=== PATIENT | female | born 1960 | race Caucasian/White ===

== ENCOUNTER → 2018-05-16 09:45 | Outpatient (CLI) | payer OTHER, SELFPAY ==
--- NOTE | 2018-05-16 | FLU_PTH ---
PATIENT: MELVIN CALLEJAS LOC: [facility] U#:[id number] AGE/SX: 64/F ROOM: RE05/16/[address]: Dr. Fernando Oleary MD : 1960 BED: DIS: SPEC #: [id number] RECD: 05/16/18 16:00 STATUS: ADRI DIANA #: [id number] SHABBIR: 05/16/18 00:[address]: Fernando Oleary DEPT: CYTOLOGY RECD BY: Homero Romo ENTERED: 05/17/18 09:57 SP TYPE: Fluid OTHR DR: Dr. Padilla Del Cid MD Tissues: Urine Procedures: Special Stain Group II Cytospin Fluid HEADER OPERATION: Not noted PRE-OP DIAGNOSIS: Hematuria TISSUE SUBMITTED: Urine for cytology DIAGNOSIS CYTOLOGY Urine for cytology (cytospin): Negative for malignant cells. AM:ignacio 05/18/18 CYTOLOGY STUDY Slides are reviewed. CYTOLOGY GROSS Received is 60 ml of clear pale yellow fluid labeled with the patient's name and and designated per the requisition as urine. Submitted for cytology. / CC:cc 05/17/18 TC:5 CPT: 23941
[2018-05-16 14:39] LABS: Cytology, Body Fluid / CSF SEE PATHOLOGY REPORT
== END ==
PROVIDERS: Family Provider Family Medicine; PCP Family Medicine; Referring Provider Urology; Visit Provider Urology
DX: R31.9 Hematuria, unspecified (principal)
CPT/HCPCS: 87086; 87088; 88108; 88305; 88313

== ENCOUNTER 2019-06-04 10:18 | Emergency (ER) | payer OTHER, SELFPAY ==
[2019-06-04 10:19] VITALS: BP 160/91; PULSE 104; RESP 16; TEMP 36.6; O2SAT 99; BMI 25.9
[2019-06-04] MEDS: Triamcinolone Acetonide 40 MG/ML Vial IM (11:12)
--- NOTE | 2019-06-04 11:14 | ED.VIS.GEN ---
History of Present Illness Chief Complaint: Allergic Reaction Informant: Patient Onset: Yesterday Maximum Severity: Mild Narrative: Patient complains of diffuse hives and itching reaction that occurred late Wednesday and definitely Wednesday morning when she woke she was covered with hives to the head arms trunk and lower extremities, she has had no exposures to anything that could have caused this no soaps or detergents etc. does report she started amoxicillin about 5 days ago related to a sinus condition, she has taken that in the past never been ill, she indicates she began taking Benadryl and the itching is better but has not resolved. She has no oral cavity lesions no fevers normal bowel bladder habits Past Medical History - Allergies and Home Meds Allergies/Adverse Reactions: Allergies levofloxacin [From Levaquin] Adverse Reaction (Verified 06/04/19 10:19) Other tachycardia prednisone Adverse Reaction (Verified 06/04/19 10:19) Other tachycardia Primary Care Physician: Padilla Del Cid MD [Primary Care Provider] - Past Medical History: - - Includes as above Smoking Status: Never smoker Review of Systems General: Denies: Chills, Fever, Sweats Eyes: Denies: Visual changes - bilaterally, Diplopia ENT: Denies: Rhinorrhea, Sore throat Cardiovascular: Denies: Chest pain, Palpitations Respiratory: Denies: Dyspnea, Cough, Dyspnea on exertion Gastrointestinal: Denies: Abdominal pain, Nausea, Vomiting, Diarrhea, Melena, Hematochezia Genitourinary: Denies: Dysuria, Hematuria, Frequency Musculoskeletal: Denies: Back pain, Extremity Pain Skin: Denies: Rash, Wounds Neurological: Denies: Headache, Weakness, Numbness Allergy: Reports: Uticaria Physical Exam Vital Signs/Narrative: Vital Signs Temp Pulse Resp BP Pulse Ox 06/04/19 10:19 97.8 F 104 H 16 160/91 H 99 General: Well nourished, Well developed, No Acute Distress Head: Normocephalic, Atraumatic Eyes: Perrl, EOMI ENT: Moist mucous membranes, No rhinorrhea, Nasal congestion - ,, - Neck: Supple, Nontender Cardiovascular: Regular rate, Regular rhythm, No murmurs Respiratory: No distress, CTA bilaterally, Chest nontender Abdomen: Soft, Nontender, Nondistended, Normal bowel sounds Back: Nontender, Normal Inspection Extremities: Nontender, No edema Skin: Normal color, Rash, - - Small circular blanching hives to the head to the neck to the torso extremities and to the back, there is no petechia purpura skin breakdown, there is no oral cavity lesions, she indicates that these lesions are less itchy than they were before she took the Benadryl Neurological: Alert, Oriented x3, Cranial nerves II-XII grossly intact, Normal Strength, Normal Sensation Psychological: Normal affect, Normal Mood Diagnostic/Tx/Re-eval - Medical Decision Making The only exposure difference is the amoxicillin we will have her stop that, she does have a head cold with some nasal congestion, I explained is could also be viral, she is able to take Kenalog she believes she has had that in the past, indicates prednisone just made her heart race did not cause an allergic reaction, she is eating and drinking well she will also start taking nonsedating antihistamine such as Claritin or Zyrtec, Aveeno bath and follow-up with her outpatient providers and return for change in symptoms Home stable Impression final allergic reaction with hives; possibly related to amoxicillin ED Disposition - Plan for ED Patient: Diagnosis: Allergic reaction Instructions: ALLERGIC REACTION, Drug, ALLERGIC REACTION, Other (General) Referrals: Padilla Del Cid MD [Primary Care Provider] - Additional Instructions: Take Claritin as an antihistamine, use of Aveeno bath follow-up with your doctor stop the amoxicillin
[2019-06-04 11:38] VITALS: BP 139/90; PULSE 82; RESP 16; O2SAT 99
--- NOTE | 2019-06-04 11:39 | ED.RN ---
REVIEWED D/C INSTRUCTIONS, FOLLOW UP CARE, AND S/S THAT WOULD WARRANT A RETURN TO THE ED WITH PT. PT VERBALIZED AN UNDERSTANDING AND DENIES FURTHER QUESTIONS FOR THIS RN. PT SKIN P/W/D, RESP EVEN AND UNLABORED, PT A&O X 3, NO DISTRESS NOTED. PT AMBULATED OUT OF ED, GAIT STEADY.
== END 2019-06-04 11:39 | disposition home or self-care (01) ==
LOC: ED 11:05
PROVIDERS: Emergency Provider Emergency Medicine; Family Provider Family Medicine; PCP Family Medicine
DX: L50.0 Allergic urticaria (principal); J00 Acute nasopharyngitis [common cold]
CPT/HCPCS: 96372; 99282

== ENCOUNTER → 2020-12-13 08:24 | Outpatient (CLI) | payer OTHER, SELFPAY ==
--- NOTE | 2020-12-13 08:26 | BI_ITS ---
MAMMOGRAPHY - BILATERAL SCREENING 3-D TOMOSYNTHESIS REASON FOR EXAM: Female, 60 years old. SCREENING PERTINENT HISTORY: No significant family history. TECHNIQUE: 2-D mammograms and 3-D Tomosynthesis of the breast (s) were performed. CAD was performed. COMPARISON: 12/26/2019. FINDINGS: The breast composition is of scattered fibroglandular tissue No dense spiculated masses or suspicious microcalcifications are identified. No architectural distortion is identified. There is no skin thickening or retraction. There has been no significant change since the prior study of 12/26/2019 BI/SCRN MAMM (CAD)W/YENIFER BILAT IMPRESSION: No mammographic signs of malignancy. Routine yearly mammograms recommended. ASSESSMENT CATEGORY: BIRADS Category 1: Negative. A letter regarding these results will be sent to the patient by the facility within 30 days. FOLLOW UP RECOMMENDATION: Yearly follow up mammogram recommended. (A) Approximately 10% of breast cancers are not detected by mammography. A normal mammogram should not delay biopsy of a clinically suspicious abnormality. Electronically Signed: Lisa Casillas, at 14:08 EDT Tel , Service support ,
== END ==
PROVIDERS: PCP Family Medicine; Referring Provider Family Medicine; Visit Provider Family Medicine
DX: Z12.31 Encounter for screening mammogram for malignant neoplasm of breast (principal)
CPT/HCPCS: 77063; 77067

== ENCOUNTER → 2021-03-20 | Outpatient (CLI) | payer OTHER, SELFPAY ==
--- NOTE | 2021-03-20 08:41 | CYSPIN_PTH ---
PATIENT: MELVIN CALLEJAS LOC: [facility] U#:[id number] AGE/SX: 60/F ROOM: RE03/20/[address]: Dr. Fernando Oleary MD : 1960 BED: DIS: 03/20/2021 SPEC #: [id number] RECD: 03/20/21 12:07 STATUS: ADRI REEvelin #: [id number] SHABBIR: 03/20/21 08:[address]: Fernando Oleary DEPT: CYTOLOGY RECD BY: Elsy Orellana ENTERED: 03/20/21 12:07 SP TYPE: CYSPIN FL OTHR DR: Dr. Padilla Del Cid MD Tissues: Urine Procedures: Pap Stain (control) Special Stain Group II Cytospin Fluid HEADER OPERATION: Not noted PRE-OP DIAGNOSIS: Asymptomatic microscopic hematuria TISSUE SUBMITTED: Urine for cytology DIAGNOSIS CYTOLOGY Urine for cytology (cytospin): Negative for malignant cells. SJ:ignacio 03/21/2021 CYTOLOGY STUDY Slides are reviewed. CYTOLOGY GROSS Received is 20 ml of dark yellow cloudy fluid labeled with the patient's name and and designated per the requisition as urine. Submitted for cytology preparation. / ignacio 03/20/2021 TC:4 CPT: 74707
[2021-03-20 11:51] LABS: Cytology, Body Fluid / CSF SEE PATHOLOGY REPORT
== END | disposition home or self-care (01) ==
LOC: LABSPEC 11:07
PROVIDERS: PCP Family Medicine; Referring Provider Urology; Visit Provider Urology
DX: R31.21 Asymptomatic microscopic hematuria (principal)
CPT/HCPCS: 88108; 88313

== ENCOUNTER 2021-10-08 13:51 | Outpatient (CLI) | payer OTHER, SELFPAY ==
--- NOTE | 2021-10-08 13:53 | BI_ITS ---
MAMMOGRAPHY - BILATERAL SCREENING 3-D TOMOSYNTHESIS REASON FOR EXAM: Female, 61 years old. breast cancer screening PERTINENT HISTORY: No significant family history. TECHNIQUE: 2-D mammograms and 3-D Tomosynthesis of the breast (s) were performed. CAD was performed. COMPARISON: 12/13/2020 FINDINGS: The breast composition is composed of scattered fibroglandular density. Scattered benign calcifications are seen. No dense spiculated masses or suspicious microcalcifications are identified. No architectural distortion is identified. There is no skin thickening or retraction. There has been no significant change since the prior study. BI/SCRN MAMM (CAD)W/YENIFER BILAT IMPRESSION: No mammographic signs of malignancy. Routine yearly mammograms recommended. ASSESSMENT CATEGORY: BIRADS Category 1: Negative. A letter regarding these results will be sent to the patient by the facility within 30 days. FOLLOW UP RECOMMENDATION: Yearly follow up mammogram recommended. (A) Approximately 10% of breast cancers are not detected by mammography. A normal mammogram should not delay biopsy of a clinically suspicious abnormality. Electronically Signed: Óscar Weber MD at 14:52 EDT ,
== END 2021-10-08 23:59 | disposition home or self-care (01) ==
LOC: OPBI 13:52
PROVIDERS: PCP Family Medicine; Visit Provider Nurse Practitioner Women's Health
DX: Z12.31 Encounter for screening mammogram for malignant neoplasm of breast (principal)
CPT/HCPCS: 77063; 77067

== ENCOUNTER → 2022-10-15 | Outpatient (CLI) | payer OTHER, SELFPAY ==
--- NOTE | 2022-10-15 07:57 | BI_ITS ---
MAMMOGRAPHY - BILATERAL SCREENING REASON FOR EXAM: Female, 62 years old. Routine annual screening examination. PERTINENT HISTORY: Grandmother with breast cancer. TECHNIQUE: Digital bilateral breast yenifer (3D mammographic acquisition) in the CC and MLO projections. 2-D mediolateral oblique (MLO) and craniocaudad (CC) views of both breasts were obtained. CAD: Full Field Digital Mammography with Computer Added Detection was performed. COMPARISON: Comparison is made with prior study October 08, 2021 and December 13, 2020. FINDINGS: Breast Composition: The breasts are heterogeneously dense, which may obscure small masses. There are no dominant masses or suspicious calcifications. No other significant abnormalities are identified. There has been no significant change since the prior study. BI/SCRN MAMM (CAD)W/YENIFER BILAT IMPRESSION: Stable bilateral screening mammogram. Yearly follow-up mammogram recommended. (A) ASSESSMENT CATEGORY: BIRADS Category 2: Benign. A letter regarding these results will be sent to the patient by the facility within 30 days. Approximately 10% of breast cancers are not detected by mammography. A normal mammogram should not delay biopsy of a clinically suspicious abnormality. [id number] Electronically Signed: Chuy Pepe MD at 9:04 EDT ,
== END | disposition home or self-care (01) ==
LOC: OPBI 07:55
PROVIDERS: PCP Family Medicine; Referring Provider Family Medicine; Visit Provider Family Medicine
DX: Z12.31 Encounter for screening mammogram for malignant neoplasm of breast (principal); Z80.3 Family history of malignant neoplasm of breast
CPT/HCPCS: 77063; 77067

== ENCOUNTER → 2023-08-21 | Outpatient (CLI) | payer OTHER, SELFPAY ==
--- OUTSIDE RECORDS SUMMARY | 2023-08-21 08:28 | XMS RPT_ITS | CCD ---
Author Name Unknown Address [address] [place] [address] Organization [facility] Care Team Providers Care Registry Np Name Role Phone Milind Del Cid Unavailable BLAIR Rodriguez Attending BLAIR Pierson Referring MILIND Kee Primary Care Unavailable Milind Del Cid Primary Care Provider Milind Del Cid Primary Care Provider Milind Del Cid Primary Care Provider Allergies Allergy Classification Reported Allergen(s) Allergy Type Date of Onset Reaction(s) Facility (1 source) levoFLOXacin Drug Allergy 7 Rash, [facility] (1 source) Penicillins Drug Allergy 0 [facility] (1 source) predniSONE Drug Allergy 2 Shortness of Breath [facility] Medications Completed/Discontinued Medications Medication Drug Class(es) Dates Sig (Normalized) Sig (Original) estradiol 1 mg oral tablet (1 source) Estrogen Start: 06-27-2016 estradiol (ESTRACE) 1 mg tablet FOLIC ACID/MULTIVITS-MIN/L UT (CENTRUM SILVER ORAL) (1 source) FOLIC ACID/MULTIVITS-MIN/ LUT (CENTRUM SILVER ORAL) Take by mouth. 0 Active Problems Problem Classification Problem Date Documented Da te Episodic/Chronic Blindness and vision defects (4 sources) Presbyopia; Translations: [Presbyopia] Onset: 05-08-2014 Episodic Cataract (2 sources) Nuclear senile cataract; Translations: [Age-related nuclear cataract, bilateral] Onset: 05-08-2014 Chronic Glaucoma (2 sources) Suspected bilateral glaucoma; Translations: [Preglaucoma, unspecified, bilateral] Onset: 08-18-2016 Chronic Other eye disorders (1 source) Vitreous opacities; Translations: [Other vitreous opacities, unspecified eye] Onset: 05-08-2014 05-08-2014 Chronic Retinal detachments; defects; vascular occlusion; and retinopathy (1 source) Retinal dystrophy; 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] Chronic Unclassified (1 source) Breast neoplasm screening status Episodic Unclassified (2 sources) Patient encounter status; Translations: [Visit for screening mammogram] Results Test Name Value Interpretation Reference Range Facil ity Encounters Encounter Date Encounter Type Care Provider Facility Start: 10-21-2021 End: 10-21-2021 Patient encounter procedure Reginald Erazobrittney OD Work Phone: Optometry Procedures Date Procedure Procedure Detail Performing Clinician Start: 12-26-2019 MG Breast - bilatera l screening Blair Lazo Work Phone: Start: 12-26-2019 Mammography Trisha Dobson harshadreneelaury Start: 12-20-2018 MG Breast - bilatera l screening Blair Lazo Work Phone: Start: 12-20-2018 Mammography Blair Maira llo Start: 12-09-2017 Mammography Blair Maira llo Start: 12-17-2016 Microscopic observat ion [Identifier] in Cervix by Cyto stain Blair Lazo Plan of Treatment Date Care Activity Detail Author Start: 04-08-2028 Tetanus vaccination Tetanus: Every 10yrs [facility] Start: 02-19-2022 [facility] Start: 12-27-2020 End: 12-27-2020 Appointment 12/27/2020 Appointment Radiology Milind Del Cid MD [facility] [address] [id number] [phone] [facility] Start: 12-25-2020 Mammography MAMMOGRAM [facility] Start: 12-25-2020 Screening mammography Mammogram [facility] Start: 02-20-2020 Influenza vaccination given Sequential Influenza Vaccine (#1) [facility] Start: 12-21-2019 Screening mammography Mammogram [facility] Start: 12-18-2019 Screening for malignant neoplasm of cervix PAP SMEAR [facility] Start: 02-19-2019 Influenza vaccination given SEQUENTIAL INFLUENZA VACCINE (#1) [facility] Start: 12-13-2018 End: 12-13-2018 Ambulatory 12/13/2018 Appointment Radiology Blair Lazo MD [address] [place] [address] [phone] [facility] Start: 12-09-2018 Screening mammography Mammogram [facility] Start: 02-19-2018 Influenza vaccination SEQUENTIAL INFLUENZA VACCINE (Season Ended) [facility] Start: 2009 Administration of herpes zoster vaccine Zoster Vaccines (1 of 2) [facility] Start: 2009 Screening for malignant neoplasm of colon [facility] Start: 2009 SHINGRIX VACCINE (1 of 2) SHINGRIX VACCINE (1 of 2) [facility] Start: 2004 COLOGUARD (FIT-DNA) COLOGUARD (FIT-DNA) [facility] Start: 2004 Colonoscopy COLONOSCOPY [facility] Start: 2004 COLORECTAL CANCER SCREENING COLORECTAL CANCER SCREENING [facility] Start: [address] COLONOGRAPHY [facility] Start: 2004 DIABETES SCREEN DIABETES SCREEN [facility] Start: 2004 FECAL OCCULT BLOOD FECAL OCCULT BLOOD [facility] Start: 2004 LIPID SCREEN LIPID SCREEN [facility] Start: 2004 SIGMOIDOSCOPY SIGMOIDOSCOPY [facility] Start: 1989 HPV TESTING HPV TESTING [facility] Start: 1980 PAP TESTING PAP TESTING [facility] Start: 1978 Urine microalbumin profile DTAP,TDAP,TD (1 - Tdap) [facility] Start: 1977 Hepatitis C antibody, confirmatory test Hepatitis C Screening [facility] Start: 1977 HEPATITIS C SCREENING HEPATITIS C SCREENING [facility] Start: 1977 HIV SCREENING HIV SCREENING [facility] Start: 1975 COVID-19 Vaccine (1 of 2) COVID-19 Vaccine (1 of 2) [facility] Start: 1974 HIV screening HIV Screening [facility] Start: 1971 Adolescent depression screening assessment [facility] Start: 1964 COVID-19 VACCINE (1) COVID-19 VACCINE (1) [facility] Start: 1962 History and physical examination, annual for health maintenance Wellness Visit [facility] Start: 1960 Hepatitis C antibody, confirmatory test HEPATITIS C SCREENING [facility] Start: 1960 HEPATITIS C SCREENING HEPATITIS C SCREENING [facility] Start: 1960 Screening colonoscopy COLONOSCOPY [facility] Start: 1960 Screening for malignant neoplasm of colon Colorectal Cancer Screening: Colonoscopy [facility] Start: 1960 Tetanus vaccination TETANUS EVERY 10 YR [facility] Payers Date Payer Category Payer Unknown [id number] 2013 Unknown [employer] PPO xxxxxxxxxxxx 2013-Present xxxxxxxxxxxx [id number] 2013 Unknown [id number] 1960 Unknown [id number] Social History Date Type Detail Facility Start: 12-09-2017 End: 12-20-2018 Tobacco smoking status WYIS Unknown if ever smoked [facility] Start: 1960 Sex Assigned At Not on file O [facility] Start: 05-08-2014 Tobacco smoking stat [facility] Never smoked tobacco [facility] Start: 05-08-2014 Tobacco use and exposure Smoke less tobacco non-user [facility] Start: 10-21-2021 Alcohol intake Current non-dr side door man of alcohol (finding) [facility] Start: 10-11-2021 End: 10-21-2021 Exposure to SARS-CoV-2 (event) Not sure [facility] Progress note 10-21-2021 Note Date & Type Note Facility 10-21-2021 Note HNO ID: [id number] Author: Reginald Pulido II, OD Service: ? 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 Stable nerve appearance today. Monitor yearly. No treatment indicated at this time. Discussed need for continued close observation to minimize chance of future vision loss. 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 Stable appearance. Monitor. 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 Well tolerated at this time. Discussed possible future affect on daily activities to watch for. Monitor as instructed. H52.4 Presbyopia Comment: Present glasses for near only are adequate. I have confirmed and edited as necessary the relevant ophthalmic history, ROS, and the neuro exam findings as obtained by others. I have seen and examined Otilia Mcgregor. I have discussed the case and the management of this patient's care with the Resident/Fellow, if applicable. I also have reviewed and agree with the assessment and plan as stated above and agree with all of its relevant components. 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 Stable nerve appearance today. Monitor yearly. No treatment indicated at this time. Discussed need for continued close observation to minimize chance of future vision loss. 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 Stable appearance. Monitor. 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 Well tolerated at this time. Discussed possible future affect on daily activities to watch for. Monitor as instructed. H52.4 Presbyopia Comment: Present glasses for near only are adequate. I have confirmed and edited as necessary the relevant ophthalmic history, ROS, and the neuro exam findings as obtained by others. I have seen and examined Otilia Mcgregor. I have discussed the case and the management of this patient's care with the Resident/Fellow, if applicable. I also have reviewed and agree with the assessment and plan as stated above and agree with all of its relevant components. 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 Stable nerve appearance today. Monitor yearly. No treatment indicated at this time. Discussed need for continued close observation to minimize chance of future vision loss. 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 Stable appearance. Monitor. 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 Well tolerated at this time. Discussed possible future affect on daily activities to watch for. Monitor as instructed. H52.4 Presbyopia Comment: Present glasses for near only are adequate. I have confirmed and edited as necessary the relevant ophthalmic history, ROS, and the neuro exam findings as obtained by others. I have seen and examined Otilia Mcgregor. I have discussed the case and the management of this patient's care with the Resident/Fellow, if applicable. I also have reviewed and agree with the assessment and plan as stated above and agree with all of its relevant components. Reginald Pulido II, OD documented in this encounter [facility] Evaluation note Note Date & Type Note Facility documented in this encounter [facility] Assessments Diagnosis Visit for screening mammogra m Diagnosis Visit for screening mammogram Diagnosis Visit for screening mammogram Summary Purpose Family History No Family History Records FoundNo Family History Records FoundNo Family History Records Found Advance Directives No Advanced Directives Records FoundDocuments on File Type Date Recorded Patient Incident Response Engineer Expl anation Advance Directives and Livin g Will 12/26/2019 12:00 AM Documents on File Type Date Recorded Patient Incident Response Engineer Expl anation Advance Directives and Livin g Will 12/26/2019 12:00 AM Documents on File Type Date Recorded Patient Incident Response Engineer Expl anation Advance Directives and Livin g Will 12/20/2018 8:01 AM Reason for Referral Status Reason Specialty Diagnoses / Procedures Referre d By Contact Referred To Contact Closed Radiology Diagnoses Visit for screening mammogram Procedures Mammography Screening Johan Bilateral Mammography Screening Bilateral Blair Lazo MD [address] [place] [address] Additional Source Comments INFORMATION SOURCE (unrecogn ized section and content) DATE CREATED AUTHOR AUTHOR'S ORGANIZ ATION 01/12/2020 [facility] DATE CREATED AUTHOR AUTHOR'S ORGANIZ ATION 10/23/2021 [facility] Source Comments (unrecognize d section and content) In the event this informatio n is protected by the Federal Confidentiality of Alcohol and Drug Abuse Patient Records regulations: The Federal rules restrict any use of the information to criminally investigate or prosecute any alcohol or drug abuse patient.[facility] Reason for Visit (unrecogniz ed section and content) Care Teams (unrecognized sec tion and content) FOR RECORDS PERTAINING TO PATIENTS WHO ARE OR HAVE BEEN ENROLLED IN A CHEMICAL DEPENDENCY/SUBSTANCEABUSE PROGRAM, SOME INFORMATION MAY BE OMITTED. This clinical summary was aggregated from multiple sources. Caution should be exercised in using it in the provision of clinical care. This summary normalizes information from multiple sources, and as a consequence, information in this document may materially change the coding, format and clinical context of patient data. In addition, data may be omitted in some cases. CLINICAL DECISIONS SHOULD BE BASED ON THE PRIMARY CLINICAL RECORDS. [employer] provides no warranty or guarantee of the accuracy or completeness of information in this document.
[2023-08-21 09:32] LABS: Absolute Lymphocyte Count 1.43 X10^3/uL (0.83-4.51); Absolute Neutrophil Count 2.7 X10^3/uL (2.0-7.7); Basophil# 0.05 X10^3/uL; Eosinophil# 0.19 X10^3/uL; Hematocrit 42.8 % (37-47); Hemoglobin 14.5 g/dL (12.0-15.0); Lymphocyte # 1.43 X10^3/ul (0.83-4.51); Lymphocyte % 29.8 % (19-41); Mean Corp Hgb Conc 33.9 g/dL (32-36); Mean Corpuscular Hgb 28.9 pg (27.0-32.0); Mean Corpuscular Volume 85.3 fL (81-99); Mean Platelet Vol. 9.9 fl (6.2-12.0); Monocyte# 0.43 X10^3/uL; NRBC Flagged by Analyzer 0 % (0-5); Neutrophil # 2.69 X10^3/uL (2.7-7.7); Platelet Count 260 K/mm3 (150-450); RBC Distribution Width CV 13.6 % (11.6-14.6); RBC Distribution Width SD 42.5 fl (35.1-43.9); Red Blood Count 5.02 M/mm3 (4.2-5.4); White Blood Count 4.8 K/mm3 (4.4-11.0)
[2023-08-21 10:13] LABS: ALB/GLOB Ratio 1.1 RATIO (0.9-2.4); AST(SGOT) 29 U/L (15-37); Alanine Aminotransfer ALT/SGPT 39 U/L (13-56); Albumin, Serum 4.3 g/dL (3.2-5.0); Alkaline Phosphatase 85 U/L (45-117); Anion Gap 3 (5-15); BUN 20 mg/dL (7-18); BUN/Creat Ratio 20.4 RATIO (10-20); Chloride 106 mmol/L (98-107); Cholesterol 245 mg/dL (200); Creatinine, Serum 0.98 mg/dL (0.55-1.02); EST Glomerular Filtration Rate 61 mL/min (>60); Est Glom Filt Rate - Afr Amer 73 mL/min (>60); Globulin 3.9 g/dL (2.2-4.2); Glucose 92 mg/dL (74-106); High Density Lipoprotein 106 mg/dL; Protein, Total 8.2 g/dL (6.4-8.2); Sodium Level 139 mmol/L (136-145); Thyroid Stim Hormone (TSH) 4.05 uIU/mL (0.358-3.74); Triglycerides 39 mg/dL; Very Low Density Lipoprotein 8 mg/dL (5-40)
[2023-08-23 08:33] LABS: Vitamin D,25 Hydroxy 41.5 ng/mL
== END | disposition home or self-care (01) ==
LOC: LAB 08:26
PROVIDERS: PCP Family Medicine; Referring Provider Family Medicine; Visit Provider Family Medicine
DX: I10 Essential (primary) hypertension (principal)
CPT/HCPCS: 36415; 80053; 80061; 82306; 84443; 85025

== ENCOUNTER → 2023-10-09 | Outpatient (CLI) | payer OTHER, SELFPAY ==
[2023-10-09 10:02] LABS: Free T3 2.8 pg/mL (2.18-3.98); T4 Free Direct 0.97 ng/dL (0.76-1.46); Thyroid Stim Hormone (TSH) 2.99 uIU/mL (0.358-3.74)
== END | disposition home or self-care (01) ==
LOC: LAB 08:03
PROVIDERS: PCP Family Medicine; Referring Provider Family Medicine; Visit Provider Family Medicine
DX: R79.89 Other specified abnormal findings of blood chemistry (principal)
CPT/HCPCS: 36415; 84439; 84443; 84481

== ENCOUNTER → 2023-10-18 | Outpatient (CLI) | payer OTHER, SELFPAY ==
--- NOTE | 2023-10-18 11:44 | BI_ITS ---
MAMMOGRAPHY - BILATERAL SCREENING REASON FOR EXAM: Female, 63 years old. Routine annual screening examination. PERTINENT HISTORY: Grandmother with breast cancer. TECHNIQUE: Digital bilateral breast yenifer (3D mammographic acquisition) in the CC and MLO projections. 2-D mediolateral oblique (MLO) and craniocaudad (CC) views of both breasts were obtained. CAD: Full Field Digital Mammography with Computer Added Detection was performed. COMPARISON: Comparison is made with prior examination dated October 15, 2022 and October 08, 2021. FINDINGS: Breast Composition: The breasts are heterogeneously dense, which may obscure small masses. There are no dominant masses or suspicious calcifications. No other significant abnormalities are identified. There has been no significant change since the prior study. BI/SCRN MAMM (CAD)W/YENIFER BILAT IMPRESSION: Stable bilateral screening mammogram. Yearly follow-up mammogram recommended. (A) ASSESSMENT CATEGORY: BIRADS Category 1: Negative. A letter regarding these results will be sent to the patient by the facility within 30 days. Approximately 10% of breast cancers are not detected by mammography. A normal mammogram should not delay biopsy of a clinically suspicious abnormality. [id number] Electronically Signed: Chuy Pepe MD at 12:47 EDT ,
== END | disposition home or self-care (01) ==
LOC: OPBI 11:44
PROVIDERS: PCP Family Medicine; Referring Provider Family Medicine; Visit Provider Family Medicine
DX: Z12.31 Encounter for screening mammogram for malignant neoplasm of breast (principal); Z80.3 Family history of malignant neoplasm of breast
CPT/HCPCS: 77063; 77067

== ENCOUNTER 2024-10-05 09:14 | Outpatient (CLI) | payer OTHER, SELFPAY ==
[2024-10-05 10:21] LABS: Absolute Lymphocyte Count 1.24 X10^3/uL (0.83-4.51); Absolute Neutrophil Count 2.5 X10^3/uL (2.0-7.7); Basophil# 0.03 X10^3/uL; Basophil% 0.7 % (0-1); Eosinophil# 0.16 X10^3/uL; Eosinophils% 3.7 % (0-5); Hemoglobin 14.4 g/dL (12.0-15.0); Lymphocyte # 1.24 X10^3/ul (0.83-4.51); Lymphocyte % 28.7 % (19-41); Mean Corp Hgb Conc 33.5 g/dL (32-36); Mean Corpuscular Volume 83.7 fL (81-99); Mean Platelet Vol. 10.1 fl (6.2-12.0); Monocyte# 0.42 X10^3/uL; Monocyte% 9.7 % (0-10); NRBC Flagged by Analyzer 0 % (0-5); Neutrophil # 2.46 X10^3/uL (2.7-7.7); Platelet Count 271 K/mm3 (150-450); RBC Distribution Width CV 13.6 % (11.6-14.6); RBC Distribution Width SD 41.7 fl (35.1-43.9); Red Blood Count 5.14 M/mm3 (4.2-5.4); White Blood Count 4.3 K/mm3 (4.4-11.0)
[2024-10-05 11:06] LABS: ALB/GLOB Ratio 1.5 RATIO (0.9-2.4); AST(SGOT) 33 U/L (<=31); Alanine Aminotransfer ALT/SGPT 25 U/L (<=34); Albumin, Serum 4.9 g/dL (3.4-4.8); Alkaline Phosphatase 80 U/L (35-104); Anion Gap 14 (5-15); BUN 14 mg/dL (4-19); BUN/Creat Ratio 15.2 RATIO (10-20); Calcium,Total 9.9 mg/dL (7.6-11.0); Carbon Dioxide 24.2 mmol/L (21.0-32.0); Chloride 103 mmol/L (98-108); Cholesterol 243 mg/dL (<=200); Creatinine, Serum 0.95 mg/dL (0.70-1.20); EST Glomerular Filtration Rate 67 (>60); Globulin 3.4 g/dL (2.2-4.2); Glucose 105 mg/dL (70-99); High Density Lipoprotein 111 mg/dL; Low Density Lipoprotein Calc. 118 mg/dL; Potassium 3.9 mmol/L (3.3-5.1); Protein, Total 8.2 g/dL (5.9-8.4); Sodium Level 141 mmol/L (133-145); Total Bilirubin 0.79 mg/dL (0.00-1.30); Triglycerides 70 mg/dL; Very Low Density Lipoprotein 14 mg/dL (5-40); cholesterol:hdl ratio screen 2.19
[2024-10-05 11:12] LABS: Vitamin D,25 Hydroxy 42.8 ng/mL (30-100)
== END 2024-10-05 23:59 | disposition home or self-care (01) ==
LOC: MTLAB 09:16
PROVIDERS: PCP Family Medicine; Referring Provider Family Medicine; Visit Provider Family Medicine
DX: I10 Essential (primary) hypertension (principal); R79.89 Other specified abnormal findings of blood chemistry; Z78.0 Asymptomatic menopausal state
CPT/HCPCS: 36415; 80053; 80061; 82306; 84443; 85025

== ENCOUNTER → 2024-10-31 | Outpatient (CLI) | payer OTHER, SELFPAY ==
--- NOTE | 2024-10-31 15:17 | BD_ITS ---
PROCEDURE: DEXA BONE DENSITY STUDY 10/31/2024 REASON FOR EXAM: F, age 64 y/o . Postmenopausal. TECHNIQUE: DXA scan of sites with data reported below. REFERENCE LINKS: [facility] Adult Positions COMPARISON: None FINDINGS: BMD and T-SCORES Lumbar spine: 0.771 g/cm2, T-score -2.5 Levels: L1 through L4 Left femoral neck: 0.596 g/cm2, T-score -2.3 Femoral neck comparison data not recommended for monitoring change. Left total hip: 0.796 g/cm2, T-score -1.2 Right femoral neck: 0.585 g/cm2, T-score -2.4 Femoral neck comparison data not recommended for monitoring change. Right total hip: 0.725 g/cm2, T-score -1.8 The World Health Organization has defined the following categories based on bone density: Normal bone density: T-score equal to or greater than -1.0 Osteopenia: T-score between -1.0 and -2.5 Osteoporosis: T-score equal to or less than -2.5 The patient does meet the pharmacological treatment recommendations for prevention of osteoporosis. BD/Dexa Bone Density Study IMPRESSION: OSTEOPENIA. Recommend follow-up as clinically warranted. Reading Location: [facility]
--- NOTE | 2024-10-31 15:31 | BI_ITS ---
EXAM: SCRN MAMM (CAD)W/YENIFER BILAT DATE: 10/31/2024 CLINICAL HISTORY: F, Age 64 y/o , SCREENING Grandmother with breast cancer. BREAST CANCER RISK ASSESSMENT: Not assessed. TECHNIQUE: Bilateral screening digital breast tomosynthesis with 2D and 3D images. Computer aided detection. COMPARISON: Prior exam(s) dated October 18, 2023.. FINDINGS: TISSUE DENSITY: The breast tissue is heterogenously dense, which may obscure small masses. Bilateral Breast Mammographic Findings: No significant masses, calcifications or other abnormalities are identified. No suspicious masses, areas of developing architectural distortion, or suspicious calcifications. There has been no significant interval change. BI/SCRN MAMM (CAD)W/YENIFER BILAT IMPRESSION: OVERALL FINAL ASSESSMENT: BIRADS 1 NEGATIVE RECOMMENDATION: Routine annual follow-up in 1 Year A letter with findings and recommendations will be mailed to the patient. Reading Location: [id number]
== END | disposition home or self-care (01) ==
LOC: OPBD 15:15
PROVIDERS: PCP Family Medicine; Referring Provider Family Medicine; Visit Provider Family Medicine
DX: Z12.31 Encounter for screening mammogram for malignant neoplasm of breast (principal); Z78.0 Asymptomatic menopausal state
CPT/HCPCS: 77063; 77067; 77080